=== PATIENT | male | born 1975 | race Caucasian/White ===

== ENCOUNTER 2020-08-22 09:35 | Emergency (ER) | payer MEDICAID ==
[~2020-08-22] VITALS: Ht 170.2 cm; Wt 79.8 kg
[2020-08-22 09:52] VITALS: Ht 170.2 cm; Wt 79.8 kg
[2020-08-22 10:24] VITALS: BP 142/73
== END 2020-08-22 10:24 | disposition home or self-care (01) ==
LOC: ED 09:35
DX: L02.512 Cutaneous abscess of left hand (principal)